=== PATIENT | male | born 1960 | race African-American/Black ===

== ENCOUNTER 2018-12-27 10:14 | Emergency (ER) | payer BC, SELFPAY ==
[2018-12-27 11:22] LABS: #Basophils 0.1 thou/uL (0.0-0.2); #Eosinphils 0.1 thou/uL (0.0-0.7); #Lymphocytes 2.1 thou/uL (1.20-3.40); #Monocytes 0.4 thou/uL (0.11-0.59); #Neutrophils 3.5 thou/uL (1.40-6.50); %Basophils 1.3 % (0.0-1.0); %Eosinophils 1.1 % (0.0-10.0); %Lymphocytes 35.1 % (21.0-51.0); %Neutrophils 56.4 % (42.0-75.0); Hemoglobin 15.7 g/dL (14.0-18.0); Mean Corpuscular HGB CONC 34.6 g/dL (32.0-36.0); Mean Corpuscular Hemoglobin 30.9 pg (27.0-31.0); Mean Corpuscular Volume 89.2 fL (78.0-98.0); Mean Platelet Volume 8.7 fL (7.4-10.4); Platelet Count 230 thou/uL (130-400); RBC Distribution Width 11.3 % (11.5-14.5); White Blood Cell (WBC) Count 6.1 thou/uL (4.8-10.8)
[2018-12-27 11:45] LABS: ALT (SGPT) 19 U/L (8-55); AST (SGOT) 21 U/L (5-34); Albumin 4.4 g/dL (3.5-5.0); Alkaline Phosphatase 152 U/L (40-110); Anion Gap 10 mmol/L (10-20); BUN (Urea Nitrogen) 13 mg/dL (8.4-25.7); Bilirubin, Total 2.5 mg/dL (0.2-1.2); Calc. Creatinine Clearance 0 mL/min (70-130); Calcium 9.4 mg/dL (7.8-10.44); Carbon Dioxide 29 mmol/L (22-29); Chloride 105 mmol/L (98-107); Estimated GFR-MDRD Greater than 90; Globulin 3.3 g/dL (2.4-3.5); Glucose 88 mg/dL (70-105); Potassium 4.2 mmol/L (3.5-5.1); Protein, Total 7.7 g/dL (6.0-8.3); Sodium 140 mmol/L (136-145)
[2018-12-27 12:40] LABS: Bilirubin Negative (Negative); Blood, Urine Negative (Negative); Clarity Clear (Clear); Glucose, Urine (Dipstick) Normal (Negative); Leukocyte Negative Leu/uL (Negative); Nitrite Negative (Negative); Protein, Urine (Dipstick) Negative (Neg-Trace)
--- NOTE | 2018-12-27 14:22 | CT ---
CT CHEST WITH CONTRAST CT ABDOMEN WITH CONTRAST: INDICATION: Pain. FINDINGS: The imaged lungs are clear. No pleural effusion. No visualized pneumothorax. Heterogeneous enhancement of the spleen. Low attenuation of the liver could relate to phase of enhan cement or alternatively hepatic steatosis. This could be further discerned with liver function enzym es. There is a dystrophic calcification of the intraabdominal fat of the right upper quadrant adjace nt the hepatic margin. Small hypodensity of the right renal cortex demonstrates Hounsfield units of a cyst. There is no evidence of aortic dissection. No periaortic hematoma or aneurysm evident. Limited evaluation of the bowel without enteric contrast. There is incidental note of partially imaged osseous abnormality of the pelvis predominantly involvin g the left ilium, although generalized cortical thickening and trabecular disarray are noted. Inters persed focal lucencies of the left ileum are present. 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 IMPRESSION: 1. No evidence of an acute process. 2. Osseous abnormality of the pelvis, notably left ilium, favoring Paget disease. Dedicated radiogr aphic followup to include the entirety of the pelvis would be beneficial for further assessment. CODE T
[2018-12-27] MEDS ORDERED: Iopamidol-370 76% 500 ML 1 ML ONE (16:24)
== END 2018-12-27 15:08 | disposition home or self-care (01) ==
LOC: ERS 10:14
DX: M54.5 Low back pain (principal); I10 Essential (primary) hypertension
CPT/HCPCS: 36415; 71275; 72191; 74175; 80053; 81003; 85025; 87086; Q9967

== ENCOUNTER 2021-02-09 15:08 | Emergency (ER) | payer SELFPAY ==
[2021-02-10 17:13] LABS: SARS-CoV-2 PCR by NAA DETECTED (NotDetected)
== END 2021-02-09 18:00 | disposition home or self-care (01) ==
LOC: ERS 15:08
DX: U07.1 COVID-19 (principal); J11.1 Influenza due to unidentified influenza virus with other respiratory manifestations; I10 Essential (primary) hypertension
CPT/HCPCS: 99283; U0003; U0005

== ENCOUNTER 2022-01-17 08:27 | Emergency (ER) | payer BC ==
[2022-01-17] MEDS ORDERED: HYDROcodone/Acetaminophen 5/325 mg Tablet ONE (09:11)
== END 2022-01-17 09:19 | disposition home or self-care (01) ==
LOC: ERS 08:27
DX: M54.50 Low back pain, unspecified (principal); I10 Essential (primary) hypertension
CPT/HCPCS: 99283

== ENCOUNTER 2022-06-21 09:30 | Emergency (ER) | payer BC, SELFPAY ==
[2022-06-21] MEDS ORDERED: Ketorolac Tromethamine 30 MG/ML VIAL ONE (09:54)
== END 2022-06-21 10:24 | disposition home or self-care (01) ==
LOC: ERS 09:30
DX: K43.9 Ventral hernia without obstruction or gangrene (principal); I10 Essential (primary) hypertension
CPT/HCPCS: 96372; 99283; J1885

== ENCOUNTER 2022-09-09 13:28 | Emergency (ER) | payer BC, SELFPAY | END 2022-09-09 15:03 | disposition home or self-care (01) | LOC: ERS 13:28 | DX: U07.1 COVID-19 (principal); I10 Essential (primary) hypertension | CPT/HCPCS: 99283 ==